=== PATIENT | female | born 1960 | race Caucasian/White ===

== ENCOUNTER 2017-12-06 10:53 | Emergency (ER) | payer OTHER, MEDICAID | END 2017-12-06 14:31 | disposition home or self-care (01) | LOC: FTE 10:53 | DX: S60.463A Insect bite (nonvenomous) of left middle finger, initial encounter (principal); S80.861A Insect bite (nonvenomous), right lower leg, initial encounter; F17.210 Nicotine dependence, cigarettes, uncomplicated; W57.XXXA Bitten or stung by nonvenomous insect and other nonvenomous arthropods, initial encounter; Y92.9 Unspecified place or not applicable | CPT/HCPCS: 99283; Z7502 ==